=== PATIENT | female | born 1950 | race Caucasian/White ===

== ENCOUNTER 2017-04-14 09:36 | Outpatient (CLI) | payer BC ==
[2017-04-14 18:23] LABS: BASOPHILS % (AUTO) 0.9 %; EOSINOPHILS # (AUTO) 0.1 10^3/uL (0.0-0.7); HCT - HEMATOCRIT 42.2 % (37.0-47.0); LYMPHOCYTES # (AUTO) 1.9 10^3/uL (1.5-3.5); LYMPHOCYTES % (AUTO) 38.6 %; MEAN CORPUSCULAR HEMOGLOBIN 30.7 pg (27.0-31.0); MEAN CORPUSCULAR HGB CONC 33.2 g/dL (32.0-36.0); MEAN CORPUSCULAR VOLUME 92.6 fL (81.0-99.0); MEAN PLATELET VOLUME 10.7 fL (7.9-10.8); MONOCYTES # (AUTO) 0.3 10^3/uL (0.0-1.0); MONOCYTES % (AUTO) 6.5 %; NEUTROPHILS # (AUTO) 2.6 10^3/uL (1.5-6.6); NUCLEATED RED BLOOD CELLS AUTO 0.1 /100WBC; RED BLOOD COUNT 4.56 10^6/uL (4.20-5.40); RED CELL DISTRIBUTION WIDTH 14.5 % (12.0-15.0)
[2017-04-14 18:47] LABS: ALBUMIN/GLOBULIN RATIO 1.8 (1.0-2.2); BILIRUBIN,TOTAL 0.8 mg/dL (0.2-1.0); BUN - BLOOD UREA NITROGEN 17 mg/dL (6-20); CALCIUM 9.7 mg/dL (8.5-10.3); CARBON DIOXIDE - CO2 25 mmol/L (21-32); CHLORIDE 103 mmol/L (101-111); CHOL/HDL RATIO 3.6 (<4.4); CHOLESTEROL 316 mg/dL; CREATININE 0.6 mg/dL (0.4-1.0); GFR - MDRD 100 (>89); GLUCOSE 69 mg/dL (70-100); HDL CHOLESTEROL 89 mg/dL; LDL/HDL RATIO 2.4 (<4.4); SODIUM 139 mmol/L (135-145); TOTAL PROTEIN 6.7 g/dL (6.7-8.2); TRIGLYCERIDES 56 mg/dL; VLDL CHOLESTEROL 11 mg/dL
[2017-04-14 18:59] LABS: HEMOGLOBIN A1C 0.56 g/dL
[2017-04-15 06:03] LABS: TEST RESULT REPORT (())
[2017-04-19 20:22] LABS: TEST RESULT REPORT (())
== END 2017-04-14 09:37 | disposition home or self-care (01) ==
LOC: LAB.F 09:36
PROVIDERS: ATTEND Family Medicine
DX: M81.0 Age-related osteoporosis without current pathological fracture (principal); M80.88XA Other osteoporosis with current pathological fracture, vertebra(e), initial encounter for fracture
CPT/HCPCS: 36415; 80053; 80061; 81599; 82306; 83036; 83090; 83525; 84443; 85025; 85384; 86140

== ENCOUNTER 2018-01-17 13:58 | Outpatient (CLI) | payer BC ==
--- NOTE | 2018-01-18 14:15 | MRI Report ---
EXAM: MRI THORACIC SPINE WITHOUT CONTRAST EXAM DATE: 01/17/2018 03:39 PM. CLINICAL HISTORY: Osteoporosis with vertebral fractures. COMPARISONS: Lumbar MRI performed the same date. TECHNIQUE: Multiplanar, multisequence T1-weighted and fluid-sensitive sequences of the thoracic spine from C7 to L1 without contrast. Other: None. FINDINGS: Patient motion artifact. Spinal Cord: No signal abnormality in the visualized spinal cord. Alignment: Normal thoracic vertebral body alignment. No spondylolisthesis. Mild upper thoracic curvat ure convex left. Lower thoracic curvature convex right. Bone Marrow: T5 vertebral body hemangioma. Mild chronic superior endplate compression at T6. Moderate chronic-appearing wedge compression at T7 and T8. Moderate chronic-appearing superior endplate compr ession at the T12 level. No significant marrow edema identified. No acute fractures are seen. Disk Levels/Facets: Minimal degenerative disk and facet changes throughout the thoracic spine with no significant disk bu lges or protrusions. No significant thoracic canal or foraminal stenosis. Musculature: Normal. No edema or fatty atrophy. Other: Unremarkable. IMPRESSION: 1. Multilevel mild to moderate chronic-appearing compression fractures at the T6, T7, T8 and T12 leve ls. [facility] Referring Provider Line: [phone] SITE ID: [id number]
--- NOTE | 2018-01-18 14:15 | MRI Report ---
EXAM: MRI LUMBAR SPINE WITHOUT CONTRAST EXAM DATE: 01/17/2018 03:39 PM. CLINICAL HISTORY: Osteoporosis and lumbar fractures. COMPARISON: None. TECHNIQUE: Multiplanar, multisequence T1-weighted and fluid-sensitive sequences of the lumbar spine f rom T12 to S1 without contrast. Other: None. FINDINGS: Spinal Cord: The conus terminates at L1. The conus medullaris and cauda equina are unremarkable. Alignment: Normal alignment. No spondylolisthesis. Bone Marrow: Five [id number] lumbar vertebral bodies are assumed. There are fractures at all vis ualized vertebral body levels from T12 through L5. T12 mild to moderate superior endplate compression with minimal associated marrow edema consistent with chronic fracture. L1 moderate compression with some bone retropulsion at the upper posterior aspect indicating burst component. Kyphoplasty. No sign ificant marrow edema. L2 mild compression deformity without marrow edema. Status post kyphoplasty. L3 mild to moderate central compression fracture without significant edema status post kyphoplasty. L4 mild superior endplate compression without significant edema. L5 moderate compression fracture status post kyphoplasty. No significant marrow edema is seen. No evidence of an acute fracture. Disk Levels/Facets: T12-L1: Slight annular disk bulge. Small bone retropulsion at the upper posterior aspect of L1. Mild facet arthropathy. No significant stenosis. L1-L2: Minimal disk bulge and facet arthropathy without stenosis. L2-L3: Minimal disk bulge and facet arthropathy without stenosis. L3-L4: Minimal disk bulge and facet arthropathy without stenosis. L4-L5: Slight annular disk bulge and mild facet arthropathy. No stenosis. L5-S1: Mild facet arthropathy. No stenosis. Musculature: Mild atrophy of the lower paraspinous musculature. 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 IMPRESSION: 1. Chronic appearing multilevel lower thoracic and lumbar compression fractures. 2. No significant central canal or foraminal stenosis. Comment: The following findings are so common in adults without low back pain that while we report th eir presence, they must be interpreted with caution and in the context of the clinical situation. (Re shad Stephen et al, Spine 2001) Prevalence of findings in patients without low back pain: Disk degeneration (any evidence): 92% Disk desiccation/T2 signal loss: 83% Disk height loss: 56% Disk bulge: 64% Disk protrusion: 32% Annular tear/high intensity zone: 38% [facility] Referring Provider Line: [phone] SITE ID: [id number]
== END 2018-01-17 13:59 | disposition home or self-care (01) ==
LOC: DI 13:58
PROVIDERS: ATTEND Family Medicine
DX: M80.88XA Other osteoporosis with current pathological fracture, vertebra(e), initial encounter for fracture (principal); M48.56XD Collapsed vertebra, not elsewhere classified, lumbar region, subsequent encounter for fracture with routine healing; M48.54XD Collapsed vertebra, not elsewhere classified, thoracic region, subsequent encounter for fracture with routine healing; M47.896 Other spondylosis, lumbar region; M51.36 Other intervertebral disc degeneration, lumbar region; M51.34 Other intervertebral disc degeneration, thoracic region; M47.894 Other spondylosis, thoracic region
CPT/HCPCS: 72146; 72148